=== PATIENT | male | born 1975 | race Two or more races ===

== ENCOUNTER 2018-12-27 14:00 | Outpatient (CLI) | payer OTHER | END 2018-12-27 14:01 | disposition home or self-care (01) | LOC: SC 14:00 | PROVIDERS: ATTEND Internal Medicine Pulmonary Disease | DX: R06.83 Snoring (principal); R06.81 Apnea, not elsewhere classified; R41.89 Other symptoms and signs involving cognitive functions and awareness; G47.10 Hypersomnia, unspecified; G47.8 Other sleep disorders; R51 Headache | CPT/HCPCS: 99203; 99212 ==

== ENCOUNTER 2019-01-25 19:30 | Outpatient (CLI) | payer OTHER | END 2019-01-25 19:31 | disposition home or self-care (01) | LOC: SC 19:30 | PROVIDERS: ATTEND Internal Medicine Pulmonary Disease | DX: R06.83 Snoring (principal); G47.10 Hypersomnia, unspecified | CPT/HCPCS: 95810 ==

== ENCOUNTER 2019-02-14 15:57 | Outpatient (CLI) | payer OTHER ==
[2019-02-14 16:36] VITALS: BP 118/68
--- NOTE | 2019-02-14 16:36 | SLEEP CARE CONSULTATION ---
Information from patient questionnaire entered by Franchesca Abdalla. I have reviewed and concur with the information entered by Franchesca Abdalla. This document represents the service I personally performed and the decisions made by me, Diane Schwab RN, MSN, INVERFORM MACHINE OPERATOR. History of Present Illness Accompanied by: Spouse Initial [place] Sleepiness Scale score: 15 Current [place] Sleepiness Scale score: 19 Additional HPI information: BETSY THORPE returns with spouse for follow up of the recently performed polysomnography and patient was informed of the findings. I explained the pathophysiology behind obstructive sleep apnea. Patient does not have significant sleep disordered breathing but has elevated AHI in supine position so advised positional therapy. Methods to achieve positional management therapy were discussed; such as, positioning with pillows, wearing a T-shirt with tennis balls sewn into the back, Slumberbump belt. Pamphlet provided on how to obtain the commercially available product. I also strongly encouraged the patient to lose weight to reduce apnea risk and snoring. Patient counseled not drink alcohol less than 4 hours before bedtime as it can increase snoring and apnea. Patient was cautioned about risks of drowsy driving until sleepiness symptoms resolve. AAS patient education on snoring and sleep apnea given and reviewed. Sleep Study - Polysomnography Polysomnography findings: The quality of the study is fair due to loss of thermister air flow signal.. The patient had normal sleep efficiency. The sleep architecture was abnormal for sleep fragmentation and reduced amount of time spent in slow wave sleep (N3). Respiratory monitoring showed no significant sleep disordered breathing (AHI = 3.9) or hypoxia (marcus oxygen saturation of 89%). The few respiratory events occurred only during supine sleep (supine AHI = 5.7; non-supine = 0.00). Snore was loud in intensity. There was no significant periodic leg movement of sleep. Cardiac rhythm was normal sinus rhythm without significant arrhythmia. No abnormal behavior (parasomnia) observed during the night. Allergies and Home Medications Known drug allergies: No Home medication list reviewed: Yes Allergy and home medication list: Medication Name (generic/name brand) Strength & Dosage Amitriptyline 10mg tab take as needed for headache Sildenafil as directed Clobetasol Ointment Apply as directed Azulfidine 500mg tab one daily Ibuprofen 800mg tab as directed, as needed Omeprazole 20mg cap one twice daily Advil 200mg tab as needed Biotin As directed Tylenol 325mg tab as needed Vitamin C 1000mg tab one daily Review of Systems Review of systems same as previous: Yes Neurological: reports: headaches Endocrine: reports: increased appetite Musculoskeletal: reports: joint pain, back pain, joint swelling, mobility problems, other (arthritis) Immunologic: reports: rash, other (psoriasis) Physical Exam Blood Pressure: 118/68 Cuff size: long Heart Rate: 72 O2 Saturation: 98 Height: 5 ft 6.23 in Weight (kg): 89.993 kg Body Mass Index: 31.8 BMI Classification: Class 1 Impression and Plan Snoring but no significant sleep disordered breathing except supine position with supine AHI of 5.7. Patient advised that often weight loss will reduce snoring as well as apnea risk. A diet consultation can assist weight loss goals so patient advised to follow up with PCP for a referral. An oral appliance can also be used for snoring. This would require a dental consultation. Patient cautioned not to use other online appliances as can cause bite issues. A list of accredited dentists in area and one local dentist who makes oral appliances given. Patient is advised to check if insurance will cover. An ENT consult can also be helpful to determine if any other treatment is an option. He was also advised he can try positional therapy to reduce apnea risk and snoring and methods discussed. Until he is able to use these methods, he can use pillow positioning. After some discussion he chose positional therapy. He is advised to follow up in 2 months. If no better, then further evaluation may be indicated with sleep study in supine position to see if any other treatment indicated. AASM snoring and apnea and nonpap apnea treatment AAS pamphlets given and reviewed for reference * Positional therapy * Attempt to lose weight * consider diet consultation and follow up with PCP for referral * Avoid alcohol consumption near bedtime * The patient is cautioned about driving until sleepiness is completely resolved. * Return in 2 months for follow up. I will response compliance at that time. I spent 100% of this 30 minute visit face to face with the patient with greater than 50% of this was spent time counseling the patient and coordination of care.
== END 2019-02-14 15:58 | disposition home or self-care (01) ==
LOC: SC 15:57
PROVIDERS: ATTEND Nurse Practitioner Family
DX: R06.83 Snoring (principal)
CPT/HCPCS: 99212; 99214

== ENCOUNTER 2019-04-11 14:50 | Outpatient (CLI) | payer OTHER ==
[2019-04-11 15:43] VITALS: BP 124/74
--- NOTE | 2019-04-11 15:43 | SLEEP CARE CONSULTATION ---
Information from patient questionnaire entered by Franchesca Abdalla. I have reviewed and concur with the information entered by Franchesca Abdalla. This document represents the service I personally performed and the decisions made by me, Diane Schwab, RN, MSN, MBA INTERNSHIP. History of Present Illness AHI: 3.9 Reason for CPAP/BiPAP follow up: other (2 month follow up positional therapy) Accompanied by: Spouse Prior sleep studies: Yes Year and Where: 2018 [facility] additional information: Patient has been using positional therapy by using pillows. However, he still wakes on his back snoring as observed by spouse. It then takes some time to return to sleep after awakened. He did not want to wear a Tshirt with tennis balls or Slumberbump due to back pain and concerned it would aggravate his back pain when tried to sleep supine. He is seeing a rheumotologist for his arthritis. He is trying to sleep on his side or stomach. He denies pain in back from sleeping on back. He reports he is no more rested with pillow positional therapy and continues to use coffee to keep alert during the day. His spouse is waking to his snoring when he is supine and wakes him sleep on his side and helps with pillow positioning. She still notices him to have pauses in breathing. He is still waking 2-3 times during the night and waking tired and feels tired / sleepy through out the day. Subjective Initial [place] Sleepiness Scale score: 15 Current [place] Sleepiness Scale score: 17 Allergies and Home Medications Known drug allergies: Yes Home medication list reviewed: Yes Allergy and home medication list: Medication Name (generic/name brand) Strength & Dosage Amitriptyline 10mg tab nightly Sildenafil as needed Clobetasol Ointment Apply as directed Azulfidine 500mg tab one daily Ibuprofen 800mg tab as directed, as needed Omeprazole 20mg cap one twice daily Advil 200mg tab as needed Biotin As directed Tylenol 325mg tab as needed Vitamin C 1000mg tab one daily * New prescriptions for rheumatoid arthritis, not yet received. Review of Systems Review of systems same as previous: No (Tinnitus - seen by ear nose throat physician and referred ENT) Physical Exam Blood Pressure: 124/74 Heart Rate: 72 O2 Saturation: 98 Height: 5 ft 6.25 in Weight: 196 lb Body Mass Index: 31.4 BMI Classification: Obesity Class 1 Uvula visualization: 0% Mallampati Class IV Heart: regular rate and rhythm Lungs: clear bilaterally Impression and Plan Snoring with no significant sleep disordered breathing except in supine position. He tried positional therapy with pillow positioning only due to concern of other methods aggravating back pain. He or his spouse would still find him on his back several times during the night and no benefit to daytime sleepiness noted. He continues to report snoring, witnessed apnea, frequent awakenings, insomnia, unrefreshed sleep with fatigue and excessive daytime sleepiness symptoms reported. Thus another another sleep study is advised sleeping supine to evaluate if further treatment is indicated. To assist him sleep supine in study, he can use pillows. Until then, he is advised to avoid sleeping supine at home to reduce apnea and hopefully reduce sleepiness symptoms. In addition, he is advised to lose weight. His current weight shows class 1 obesity. Obesity increases risk of apnea. Obesity also increases overall health risk such as diabetes and cardiac disease. He is advised to discuss a di et consult with PCP to lose weight. Since he is still tired, he is cautioned not to drive while drowsy. * Schedule polysomnography in supine position. Continue positional therapy until sleep study Attempt to lose weight Consider diet consultation. I spent 100% of this 30 minute visit face to face with the patient with greater than 50% of this was spent time counseling the patient and coordination of care.
== END 2019-04-11 14:51 | disposition home or self-care (01) ==
LOC: SC 14:50
PROVIDERS: ATTEND Nurse Practitioner Family
DX: R06.83 Snoring (principal); E66.9 Obesity, unspecified; Z68.31 Body mass index [BMI] 31.0-31.9, adult
CPT/HCPCS: 99212; 99214

== ENCOUNTER 2019-05-31 19:31 | Outpatient (CLI) | payer OTHER | END 2019-05-31 19:32 | disposition home or self-care (01) | LOC: SC 19:31 | PROVIDERS: ATTEND Internal Medicine Pulmonary Disease | DX: G47.33 Obstructive sleep apnea (adult) (pediatric) (principal); E66.9 Obesity, unspecified; Z68.30 Body mass index [BMI] 30.0-30.9, adult | CPT/HCPCS: 95810 ==

== ENCOUNTER 2019-07-11 14:38 | Outpatient (CLI) | payer OTHER ==
--- NOTE | 2019-07-11 15:33 | SLEEP CARE CONSULTATION ---
Information from patient questionnaire entered by Velma Galeas. I have reviewed and concur with the information entered by Velma Galeas. This document represents the service I personally performed and the decisions made by me, Diane Schwab, RN, MSN, DIRECTOR OF ATHLETICS. History of Present Illness Initial [place] Sleepiness Scale score: 15 Current [place] Sleepiness Scale score: 18 Additional HPI information: BETSY THORPE returns with spouse for follow up and results of the recently performed polysomnography. I explained the pathophysiology behind obstructive sleep apnea. We then spent quite a bit of time discussing different treatment options. For mild obstr uctive sleep apnea, surgery and oral appliance are alternatives to nasal CPAP therapy but in moderate or severe cases, nasal CPAP is the most effective and reliable treatment. I reviewed the impact of weight changes on sleep apnea and strongly recommended losing weight. After some discussion, the patient opted to go with the nasal CPAP therapy. I discussed the option of a manual titration study or start with autoCPAP and he chose autoCPAP. Nasal autoCPAP set at [id number] will be ordered with rationale explained. A manual titration study will be ordered if unable to find optimal pressure with office adjustments. I explained how CPAP machine works with sample devices RespirTIME PLUS Qs Dreamstation and [id number] and what to expect when using the machine. Using CPAP every night in order to get used to it was emphasized. Patient advised to put CPAP mask on before getting into bed so as not to fall asleep without CPAP. To assist acclimation to CPAP use, it could also be used for a short time during day while reading or watching TV. The patient was instructed to call the CPAP supplier to discuss any mechanical problem that may occur. If the mask given is uncomfortable or is difficult to keep on through the night even with adjustment, contact the CPAP supplier as many will replace with another mask style if notified before 30 days. If snoring or perceives is not getting enough air or too much air from the machine, notify this office. AAS patient education PAP tips reviewed and given to patient. The Dreamstation was preferred by patient. Patient counseled not drink alcohol less than 4 hours before bedtime as it can increase snoring and apnea. Patient was cautioned about risks of drowsy driving until sleepiness symptoms resolve. Patient denies drowsy driving. AAS patient education on snoring and sleep apnea given and reviewed at previous visit. Allergies and Home Medications Known drug allergies: Yes Home medication list reviewed: Yes (new medications) Allergy and home medication list: New medications added to list noted last visit. Amitriptyline was increased to 20mg Prednisone 10mg daily Humira pen ordered by carpet weaver but has not yet started due to side effects and needs to speak to the doctor. Otezla started but stopped due to side effects of diarhea Review of Systems Review of systems same as previous: No (exacerbation of psoriasis arthritis and medication prescribed. ) Physical Exam Blood Pressure: 120/80 Cuff size: long Heart Rate: 70 O2 Saturation: 98 Height: 5 ft 6.4 in Weight: 202 lb 9.6 oz (with fatigues and boots ) Body Mass Index: 32.3 BMI Classification: Obesity Class 1 Impression and Plan 1. Obstructive Sleep Apnea-Hypopnea Syndrome, mild , with lowest oxygen saturation of 90%. Possibly this is the cause of the patients symptoms of unrefreshed sleep, and excessive daytime sleepiness. Positive pressure therapy could benefit his arthritis by getting better sleep. As mentioned above, the patient will be started on nasal autoCPAP therapy with pressure set at 4-15 cmH2O. A manual titration study will be completed if unable to find optimal treatment pressure with office adjustments. Compliance guidelines also reviewed. A copy of compliance guidelines will be given for reference at check out. Because the apnea is more severe supine, I instructed to avoid sleeping supine using pillow positioning until able to start CPAP use. * Nasal auto CPAP therapy, pressure at 4-15 cm H2O. * Attempt to lose weight. * Avoid alcohol consumption near bedtime. * Avoid supine sleep until using CPAP. * The patient is again cautioned about driving until sleepiness completely resolves. * Return one month after CPAP obtained. I will assess response to therapy and compliance at that time. Time Spent with Patient (minutes): 33 I spent 100% of this visit face to face with the patient with greater than 50% of this was spent time counseling the patient and coordination of care.
[2019-07-11 15:34] VITALS: BP 120/80
== END 2019-07-11 14:39 | disposition home or self-care (01) ==
LOC: SC 14:38
PROVIDERS: ATTEND Nurse Practitioner Family
DX: G47.33 Obstructive sleep apnea (adult) (pediatric) (principal); E66.9 Obesity, unspecified; Z68.32 Body mass index [BMI] 32.0-32.9, adult
CPT/HCPCS: 99212; 99214

== ENCOUNTER 2020-02-16 14:07 | Emergency (ER) | payer OTHER ==
[2020-02-16 14:27] LABS: BASOPHILS % (AUTO) 0.3 %; EOSINOPHILS % (AUTO) 0.2 %; HGB - HEMOGLOBIN 16.4 g/dL (14.0-18.0); LYMPHOCYTES # (AUTO) 1.5 10^3/uL (1.5-3.5); LYMPHOCYTES % (AUTO) 16.4 %; MEAN CORPUSCULAR HEMOGLOBIN 29.9 pg (27.0-31.0); MEAN CORPUSCULAR HGB CONC 34.5 g/dL (32.0-36.0); MEAN CORPUSCULAR VOLUME 86.7 fL (80.0-94.0); MEAN PLATELET VOLUME 9.2 fL (7.4-11.4); MONOCYTES # (AUTO) 0.2 10^3/uL (0.0-1.0); MONOCYTES % (AUTO) 2.1 %; NEUTROPHILS # (AUTO) 7.4 10^3/uL (1.5-6.6); NEUTROPHILS % (AUTO) 80.6 %; PLT - PLATELET COUNT 270 10^3/uL (130-450); RED BLOOD COUNT 5.49 10^6/uL (4.70-6.10); WHITE BLOOD COUNT 9.2 x10^3/uL (4.8-10.8)
[2020-02-16 14:34] LABS: BILIRUBIN,URINE NEGATIVE (NEGATIVE); GLUCOSE, URINE (UA) NEGATIVE (NEGATIVE); KETONES,URINE (UA) NEGATIVE (NEGATIVE); LEUKOCYTE ESTERASE, URINE NEGATIVE (NEGATIVE); NITRITE,URINE NEGATIVE (NEGATIVE); OCCULT BLOOD,URINE NEGATIVE (NEGATIVE); PROTEIN,URINE NEGATIVE (NEGATIVE); UROBILINOGEN,URINE 0.2 (NORMAL) E.U./dL (NORMAL)
[2020-02-16 14:35] LABS: CLARITY,URINE CLEAR (CLEAR)
[2020-02-16 14:39] LABS: ALBUMIN 4.7 g/dL (3.2-5.5); ALBUMIN/GLOBULIN RATIO 1.3 (1.0-2.2); BILIRUBIN,TOTAL 0.4 mg/dL (0.2-1.0); CALCIUM 9.6 mg/dL (8.5-10.3); TOTAL PROTEIN 8.3 g/dL (6.7-8.2)
--- NOTE | 2020-02-16 14:50 | ED Physician Documentation ---
History of Present Illness - Stated complaint Stated Complaint: STOMACH PX - Chief complaint Chief Complaint: Abd Pain - Additonal information Additional information: in the 44-year-old male presents to the emergency department for evaluation of left lower quadrant abdominal pain for 4 days. He reports that it began after he drank an excessive amount of soda in the preceding days. He denies fevers vomiting or diarrhea. He denies changes in bowel habits or caliber. He denies bloody stools. He denies any pertinent past surgical history. He denies dysuria urgency or frequency. Since this pain began it has been constant. It is not exacerbated by movement or laying in the supine position Review of Systems Constitutional: denies: Fever, Chills Nose: denies: Rhinorrhea / runny nose Throat: denies: Dental pain / toothache Cardiac: denies: Chest pain / pressure, Palpitations, Pedal edema Respiratory: denies: Dyspnea, Cough GI: reports: Abdominal Pain. denies: Nausea, Vomiting, Constipation, Diarrhea, Hematemesis, Bloody / black stool : denies: Dysuria, Frequency, Hesitancy, Unable to Void PD PAST MEDICAL HISTORY - Past Medical History Past Medical History: Yes Cardiovascular: None Respiratory: CPAP use Neuro: None Endocrine/Autoimmune: None GI: None : None HEENT: None Psych: None Musculoskeletal: Other Derm: Psoriasis - Past Surgical History Past Surgical History: No - Present Medications Home Medications: Ambulatory Orders Medication Instructions Recorded Confirmed Ibuprofen [Motrin] 600 mg PO Q6H PRN #30 tab 02/16/20 - Allergies Allergies/Adverse Reactions: Allergies Allergy/AdvReac Type Severity Reaction Status Date / Time No Known Drug Allergies Allergy Verified 02/16/20 14:12 - Social History Does the pt smoke?: No Smoking Status: Never smoker Does the pt drink ETOH?: Yes Does the pt have substance abuse?: No - Immunizations Immunizations are current?: Yes - POLST Patient has POLST: No PD ED PE NORMAL - General General: Alert and oriented X 3, No acute distress, Well developed/nourished - Neck Neck: Supple, no meningeal sign, No bony TTP, No adenopathy - Cardiac Cardiac: RRR, No murmur - Respiratory Respiratory: No respiratory distress - Abdomen Abdomen: Normal bowel sounds, Soft. No: Non tender (Mild left lower quadrant abdominal tenderness without rebound or guarding. Negative McBurney's. Negative Tucker's.) - Back Back: No CVA TTP, No spinal TTP - Derm Derm: Normal color, Warm and dry - Extremities Extremities: No deformity - Neuro Neuro: Alert and oriented X 3, glove stitcher 2-12 intact Eye Opening: Spontaneous Motor: Obeys Commands Verbal: Oriented GCS Score: 15 Results - Vitals Vitals: Vital Signs - 24 hr 02/16/20 02/16/20 14:10 14:12 Temperature 36.2 C L 36.2 C L Heart Rate 68 72 Respiratory 16 18 Rate Blood Pressure 148/89 H 140/86 H O2 Saturation 97 98 Oxygen O2 Source Room air - Labs Labs: Laboratory Tests 02/16/20 02/16/20 02/16/20 14:15 14:22 14:22 WBC 9.2 RBC 5.49 Hgb 16.4 Hct 47.6 MCV 86.7 MCH 29.9 MCHC 34.5 RDW 12.0 Plt Count 270 MPV 9.2 Neut # (Auto) 7.4 H Lymph # (Auto) 1.5 Jennings # (Auto) 0.2 Eos # (Auto) 0.0 Baso # (Auto) 0.0 Absolute Nucleated RBC 0.00 Nucleated RBC % 0.0 Sodium 136 Potassium 4.0 Chloride 99 L Carbon Dioxide 26 Anion Gap 11.0 BUN 20 Creatinine 1.0 Estimated GFR (MDRD) 80 L Glucose 154 H Calcium 9.6 Total Bilirubin 0.4 AST 26 ALT 40 Alkaline Phosphatase 55 Total Protein 8.3 H Albumin 4.7 Globulin 3.6 Albumin/Globulin Ratio 1.3 Lipase 43 Urine Color YELLOW Urine Clarity CLEAR Urine pH 6.0 Ur Specific [place] <=1.005 Urine Protein NEGATIVE Urine Glucose (UA) NEGATIVE Urine Ketones NEGATIVE Urine Occult Blood NEGATIVE Urine Nitrite NEGATIVE Urine Bilirubin NEGATIVE Urine Urobilinogen 0.2 (NORMAL) Ur Leukocyte Esterase NEGATIVE Ur Microscopic Review NOT INDICATED Urine Culture Comments NOT INDICATED - Rads (name of study) CT abdomen Radiology: Final report received (No definite acute intra-abdominal abnormality. Colonic diverticulosis without acute diverticulitis) PD MEDICAL DECISION MAKING - ED course Complexity details: reviewed results, considered differential, d/w patient, d/w family ED course: 44-year-old male presents the emergency department for evaluation of 4 days of left lower quadrant abdominal pain. No history of similar in the past and no pertinent past surgical history. On laboratory findings there is no acute worrisome values. He has no leukocytosis. Renal and liver function is preserved. His urine shows no signs of infection. At this time we will proceed with a CT of the abdomen to evaluate for acute diverticulitis versus uro- lithiasis versus retrocecal appendicitis. - CT scan does show some colonic diverticulosis without findings of acute diverticulitis. This may be the source of this gentleman's pain. However he has no inflammation and no I will recommend that he take ibuprofen as needed with food. We will also recommend a healthier diet and reduced soda consumption. His labs however are otherwise unrevealing. Normal liver function and renal function. No leukocytosis Departure - Departure Disposition: 01 Home, Self Care Clinical Impression: LLQ abdominal pain, Diverticulosis large intestine w/o perforation or abscess w/o bleeding Condition: Stable Instructions: ED Diverticulosis Follow-Up: Ion Lind MD [Primary Care Provider] - Prescriptions: Ibuprofen [Motrin] 600 mg PO Q6H PRN #30 tab PRN Reason: Pain Comments: The CT scan shows that you do have some diverticulosis in your large intestine however there is no inflammation or need for antibiotics today. I would recommend that you take the ibuprofen as prescribed with food 3 times a day. If you find that your pain is worsening, you have fevers, uncontrolled vomiting or bloody stools then please return to the emergency department. I would recommend also that you follow-up with your primary care doctor to discuss this ED visit within the next few weeks.
[2020-02-16 14:59] VITALS: BP 140/86
[2020-02-16] MEDS ORDERED: IOVERSOL 320 100 ML VIAL IVP ONE ×2 (15:02→19:13)
--- NOTE | 2020-02-16 15:48 | CT Report ---
PROCEDURE: Abdomen/Pelvis W INDICATIONS: LLQ abdominal pain CONTRAST: IV CONTRAST: Optiray 320 ml: 100 PO CONTRAST: *NO PO CONTRAST TECHNIQUE: After the administration of oral and intravenous contrast, 5 mm thick sections acquired from the diap hragms to the symphysis. 5 mm thick coronal and sagittal reformats were acquired. For radiation dos e reduction, the following was used: automated exposure control, adjustment of mA and/or kV accordin g to patient size. COMPARISON: None. FINDINGS: Image quality: Excellent. ABDOMEN: Lung bases: There is mild dependent atelectasis. Heart size is normal. Solid organs: Liver and spleen are normal in size and enhancement. Gallbladder appears within antonio l limits without calcified gallstones. Biliary system is non dilated. Pancreas enhances normally. No adrenal nodules. Kidneys demonstrate normal size and enhancement, without hydronephrosis. Peritoneum and bowel: Bowel loops demonstrate normal wall thickness and caliber. The appendix is nor mal in appearance. There is colonic diverticulosis without acute diverticulitis. No free fluid or air . Nodes and vessels: No retroperitoneal or mesenteric adenopathy by size criteria. Aorta and inferior vena cava are normal in size. Miscellaneous: No ventral hernias. PELVIS: Genitourinary: Bladder wall thickness is normal. Miscellaneous: No inguinal hernias or adenopathy. Bones: No suspicious bony lesions. No vertebral body compression fractures. IMPRESSION: 1. No definite acute intra-abdominal abnormality. 2. Colonic diverticulosis without acute diverticulitis. Reviewed by: Troy Paul MD on 02/16/2020 3:46 PM PDT Approved by: Troy Paul MD on 02/16/2020 3:46 PM PDT Station ID: [id number]
== END 2020-02-16 16:18 | disposition home or self-care (01) ==
LOC: ED 14:07
DX: K57.30 Diverticulosis of large intestine without perforation or abscess without bleeding (principal)
CPT/HCPCS: 36415; 74177; 80053; 81003; 83690; 85025; 99284; Q9967; 81001; 87086